=== PATIENT | female | born 1990 | race Caucasian/White ===

== ENCOUNTER → 2019-01-20 | Outpatient (REF) | payer OTHER | LOC: M LAB LCGH 11:07 | DX: Z12.4 Encounter for screening for malignant neoplasm of cervix (principal) ==

== ENCOUNTER → 2021-02-20 | Outpatient (CLI) | payer OTHER | LOC: M LAB 18:52 | PROVIDERS: ATTEND Family Medicine | DX: Z36.9 Encounter for antenatal screening, unspecified (principal) ==